=== PATIENT | female | born 1995 | race Two or more races ===

== ENCOUNTER 2019-06-17 09:36 | Emergency (ER) | payer SELFPAY ==
[~2019-06-17] VITALS: Ht 162.6 cm; Wt 59.0 kg
[2019-06-17 10:53] LABS: BASO % 0 % (0-3); EOS # 0.1 x10^3/uL (0.0-0.7); EOS % 1 % (0-3); HEMATOCRIT 38.7 % (36.0-47.0); HEMOGLOBIN 13.3 g/dL (12.0-15.5); LYMPH # 3.3 x10^3/uL (1.0-4.8); LYMPH % 29 % (24-48); MEAN CORPUSCULAR HEMOGLOBIN 30 pg (25-35); MEAN CORPUSCULAR HGB CONC 34 g/dL (31-37); MEAN CORPUSCULAR VOLUME 87 fL (79-100); MONO # 0.6 x10^3/uL (0.0-1.1); MONO % 6 % (0-9); NEUT # 7.4 x10^3/uL (1.8-7.7); NEUT % 65 % (31-73); PLATELET COUNT 401 x10^3/uL (140-400); RED BLOOD COUNT 4.43 x10^6/uL (3.50-5.40); RED CELL DISTRIBUTION WIDTH 13.1 % (11.5-14.5); WHITE BLOOD COUNT 11.4 x10^3/uL (4.0-11.0)
[2019-06-17 10:55] LABS: BILIRUBIN,URINE NEGATIVE (NEG); CLARITY,URINE CLOUDY; COLOR,URINE YELLOW; NITRITE,URINE NEGATIVE (NEG); PH,URINE 7.5; PROTEIN,URINE NEGATIVE (NEG-TRACE); UROBILINOGEN,URINE 0.2 mg/dL (0.2 mg/dL)
[2019-06-17 11:05] LABS: CALCIUM 8.8 mg/dL (8.5-10.1); CREATININE 0.5 mg/dL (0.6-1.0); GFR 150.3; POTASSIUM 3.8 mmol/L (3.5-5.1)
[2019-06-17 11:06] LABS: AMORPHOUS SEDIMENT,UR PRESENT /HPF; SQUAMOUS EPITHELIAL CELL,UR MANY /LPF
[2019-06-17 11:07] LABS: BACTERIA,URINE MODERATE /HPF (0-FEW)
[2019-06-17 11:08] LABS: RBC,URINE OCC /HPF (0-2)
[2019-06-17 11:09] LABS: ALBUMIN 3.5 g/dL (3.4-5.0); ALBUMIN/GLOBULIN RATIO 0.9 (1.0-1.7); TOTAL BILIRUBIN 0.4 mg/dL (0.2-1.0); TOTAL PROTEIN 7.4 g/dL (6.4-8.2)
[2019-06-17] MEDS ORDERED: ONDANSETRON PF 4 MG/2 ML VIAL. IV ONE (11:30)
[2019-06-17] MEDS ORDERED: IV NORMAL SALINE 1000ML BAG 1,000 ML IV ONE (11:30)
[2019-06-17 12:00] VITALS: BP 105/54
--- NOTE | 2019-06-17 12:12 | RAD ---
Ultrasound first semester HISTORY: Right lower quadrant pain Sonographic examination appearance was performed by transabdominal technique multiple static images were obtained. The maternal cervix appears normal measures 4.1 cm in length. There is a posterior placenta with marginal previa with the edge of the placenta measuring 6 mm from the internal cervical os. There is a single live intrauterine the heartbeat is confirmed at 145 beats for minute. There is a posterior placenta. The ovaries appear normal with normal blood flow. There is no abnormality seen in the adnexa or the right lower quadrant. Visualization of structures is limited by the early gestational age. This may size by ultrasound is 13 weeks 6 days estimated date of confinement December 17, 2019 The measurements as follows: BPD 2.4 cm 14 weeks 1 day Head circumference 9.0 cm 40 weeks 0 days Discovered 7.8 cm 40 weeks 1 day Femur length 1.0 cm 30 weeks 1 day The amniotic fluid volume appears normal. IMPRESSION: 1. Single live intrauterine at 13 weeks cc gestational age. 2. Marginal previa. 3. A short-term follow-up ultrasound should be performed if clinically indicated otherwise a structural survey would be performed at 18-21 weeks gestational age. End impression Electronically signed by: Quoc Rojas III, MD (06/17/2019 12:09 PM) [facility]
--- NOTE | 2019-06-17 12:30 | PHYS DOC ---
Past Medical History Past Medical History: No Pertinent History Past Surgical History: No Surgical History Alcohol Use: None Drug Use: None Adult General Chief Complaint Chief Complaint: ABDOMINAL PAIN IN HPI HPI Patient is a 23 year old female who presents to the emergency department accompanied by her significant other with complaints of right sided pelvic pain, nausea, and tactile fever. Patient denies any vaginal bleeding, irregular vaginal discharge, vomiting, diarrhea, dysuria, hematuria, or increased urinary frequency. She reports concern because she was told she had an ovarian cyst and she has had pain throughout her . Patient states that the pain increased this week. Her estimated due date is 12/17/19. She is unsure of when her LMP was. PT currently rates her pain 8/10 on the pain scale and denies any alleviating factors. Pt is 2, para 1. Review of Systems Review of Systems Constitutional: Denies fever or chills [] Eyes: Denies redness, or eye pain [] HENT: Denies nasal congestion or sore throat [] Respiratory: Denies cough or shortness of breath [] Cardiovascular: No additional information not addressed in HPI [] GI: see HPI : Denies dysuria or hematuria; reports increased frequency see HPI [] Musculoskeletal: Denies back pain or joint pain [] Integument: Denies rash or skin lesions [] Neurologic: Denies headache, focal weakness or sensory changes [] All other systems were reviewed and found to be within normal limits, except as documented in this note. Current Medications Current Medications Current Medications Medications (Trade) Dose Ordered Sig/Lou Start Time Stop Time Status Last Admin Dose Admin Ondansetron HCl (Zofran) 4 mg 1X ONCE 06/17/19 11:30 06/17/19 11:31 DC 06/17/19 11:25 4 MG Sodium Chloride 1,000 ml @ 1,000 mls/hr 1X ONCE 06/17/19 11:30 06/17/19 12:29 DC 06/17/19 11:25 1,000 MLS/HR Allergies Allergies Allergies Coded Allergies Type Severity Reaction Last Updated Verified Penicillins Allergy Severe HIVES 06/17/19 Yes Physical Exam Physical Exam Constitutional: Well developed, well nourished, no acute distress, non-toxic appearance. [] HENT: Normocephalic, atraumatic, bilateral external ears normal, oropharynx moist, no oral exudates, nose normal. [] Eyes: PERRLA, EOMI, conjunctiva normal, no discharge. [] Neck: Normal range of motion, no tenderness, supple, no stridor. [] Cardiovascular:Heart rate regular rhythm, no murmur [] Lungs & Thorax: Bilateral breath sounds clear to auscultation [] Abdomen: Bowel sounds normal, soft, RLQ TTP, no guarding, no rebound tenderness, no masses, no pulsatile masses. [] Skin: Warm, dry, no erythema, no rash. [] Back: No CVA tenderness. [] Extremities: No tenderness, no cyanosis, no clubbing, ROM intact, no edema. [] Neurologic: Alert and oriented X 3, no focal deficits noted. [] Psychologic: Affect normal, judgement normal, mood normal. [] Current Patient Data Vital Signs Vital Signs Date Time Temp Pulse Resp B/P (MAP) Pulse Ox O2 Delivery O2 Flow Rate FiO2 06/17/19 12:00 61 16 105/54 (71) 100 Room Air 06/17/19 10:00 98.4 98.4 Lab Values Laboratory Tests Test 06/17/19 10:16 06/17/19 10:30 POC Urine HCG, Qualitative Hcg positive (Negative) White Blood Count 11.4 x10^3/uL (4.0-11.0) H Red Blood Count 4.43 x10^6/uL (3.50-5.40) Hemoglobin 13.3 g/dL (12.0-15.5) Hematocrit 38.7 % (36.0-47.0) Mean Corpuscular Volume 87 fL (79-100) Mean Corpuscular Hemoglobin 30 pg (25-35) Mean Corpuscular Hemoglobin Concent 34 g/dL (31-37) Red Cell Distribution Width 13.1 % (11.5-14.5) Platelet Count 401 x10^3/uL (140-400) H Neutrophils (%) (Auto) 65 % (31-73) Lymphocytes (%) (Auto) 29 % (24-48) Monocytes (%) (Auto) 6 % (0-9) Eosinophils (%) (Auto) 1 % (0-3) Basophils (%) (Auto) 0 % (0-3) Neutrophils # (Auto) 7.4 x10^3/uL (1.8-7.7) Lymphocytes # (Auto) 3.3 x10^3/uL (1.0-4.8) Monocytes # (Auto) 0.6 x10^3/uL (0.0-1.1) Eosinophils # (Auto) 0.1 x10^3/uL (0.0-0.7) Basophils # (Auto) 0.0 x10^3/uL (0.0-0.2) Urine Collection Type Void Urine Color Yellow Urine Clarity Cloudy Urine pH 7.5 Urine Specific [place] 1.020 Urine Protein Negative mg/dL (NEG-TRACE) Urine Glucose (UA) Negative mg/dL (NEG) Urine Ketones (Stick) Negative mg/dL (NEG) Urine Blood Negative (NEG) Urine Nitrite Negative (NEG) Urine Bilirubin Negative (NEG) Urine Urobilinogen Dipstick 0.2 mg/dL (0.2 mg/dL) Urine Leukocyte Esterase Small (NEG) Urine RBC Occ /HPF (0-2) Urine WBC 5-10 /HPF (0-4) Urine Squamous Epithelial Cells Many /LPF Urine Amorphous Sediment Present /HPF Urine Bacteria Moderate /HPF (0-FEW) Urine Mucus Marked /LPF Maternal Serum HCG Beta Subunit 05013 mIU/mL (0-5) H Sodium Level 138 mmol/L (136-145) Potassium Level 3.8 mmol/L (3.5-5.1) Chloride Level 104 mmol/L (98-107) Carbon Dioxide Level 24 mmol/L (21-32) Anion Gap 10 (6-14) Blood Urea Nitrogen 5 mg/dL (7-20) L Creatinine 0.5 mg/dL (0.6-1.0) L Estimated GFR (Cockcroft-Gault) 150.3 BUN/Creatinine Ratio 10 (6-20) Glucose Level 74 mg/dL (70-99) Calcium Level 8.8 mg/dL (8.5-10.1) Total Bilirubin 0.4 mg/dL (0.2-1.0) Aspartate Amino Transferase (AST) 13 U/L (15-37) L Alanine Aminotransferase (ALT) 11 U/L (14-59) L Alkaline Phosphatase 79 U/L (46-116) Total Protein 7.4 g/dL (6.4-8.2) Albumin 3.5 g/dL (3.4-5.0) Albumin/Globulin Ratio 0.9 (1.0-1.7) L Laboratory Tests 06/17/19 10:30 Laboratory Tests 06/17/19 10:30 Microbiology 06/17/19 Urine Culture - Final, Complete 06/17/19 Urine Culture Result 1 (DAVE) - Final, Complete EKG EKG [] Radiology/Procedures Radiology/Procedures PROCEDURE: PREG 1ST TRIMESTER Ultrasound first semester HISTORY: Right lower quadrant pain Sonographic examination appearance was performed by transabdominal technique multiple static images were obtained. The maternal cervix appears normal measures 4.1 cm in length. There is a posterior placenta with marginal previa with the edge of the placenta measuring 6 mm from the internal cervical os. There is a single live intrauterine the heartbeat is confirmed at 145 beats for minute. There is a posterior placenta. The ovaries appear normal with normal blood flow. There is no abnormality seen in the adnexa or the right lower quadrant. Visualization of structures is limited by the early gestational age. This may size by ultrasound is 13 weeks 6 days estimated date of confinement December 17, 2019 The measurements as follows: BPD 2.4 cm 14 weeks 1 day Head circumference 9.0 cm 40 weeks 0 days Discovered 7.8 cm 40 weeks 1 day Femur length 1.0 cm 30 weeks 1 day The amniotic fluid volume appears normal. IMPRESSION: 1. Single live intrauterine at 13 weeks cc gestational age. 2. Marginal previa. 3. A short-term follow-up ultrasound should be performed if clinically indicated otherwise a structural survey would be performed at 18-21 weeks gestational age. [] Course & Med Decision Making Course & Med Decision Making Pertinent Labs and Imaging studies reviewed. (See chart for details) dx: uti in , RLQ abd pain CBC: WBC 11.4 plt 401; CMP unremarkable, UA concerning for UTI, BHcg 44475 US negative for appendicitis, or ovarian cyst Prescription written for keflex, Pt instructed to avoid bladder irritants, iIncrease clear fluids. Follow up with her [employer], Dr. Wiley in 1-2 days, pelvic rest until follow up. Return to the ER if pain increases, you develop a fever, or are unable to tolerate fluids or food. PT verbalized an understanding of home care, medications, follow-up, and return to ED instructions and was in agreement with the plan of care. [] Dragon Disclaimer Dragon Disclaimer This electronic medical record was generated, in whole or in part, using a voice recognition dictation system. Departure Departure Impression: Primary Impression: Right lower quadrant abdominal pain affecting in first trimester Additional Impression: UTI (urinary tract infection) during Disposition: 01 HOME, SELF-CARE Condition: STABLE Referrals: NO PCP (PCP) Patient Instructions: Abdominal Pain During , [id number], - Urinary Tract Infection Additional Instructions: Fill prescription(s) and use as directed. Avoid bladder irritants such as caffeine, carbonation, and spicy foods. Increase clear fluids. Follow up with y our [employer] Dr. Wiley in 1-2 days. Return to the ER if pain increases, you develop a fever, or are unable to tolerate fluids or food. Scripts Cephalexin (KEFLEX) 500 Mg Capsule 1 CAP PO BID for 7 Days, #14 CAP 0 Refills Prov: ENDER SOLORZANO APRN 06/17/19 Problem Qualifiers Additional Impression: UTI (urinary tract infection) during Trimester: second trimester Qualified Codes: O23.42 - Unspecified infection of urinary tract in , second trimester ENDER SOLORZANO [employer] Jun 17, 2019 12:30
[2019-06-17] MEDS ORDERED: CEPH-264 PO (12:57)
== END 2019-06-17 13:10 | disposition home or self-care (01) ==
LOC: ER 09:36
DX: O23.41 Unspecified infection of urinary tract in pregnancy, first trimester (principal); Z88.0 Allergy status to penicillin; Z3A.13 13 weeks gestation of pregnancy
CPT/HCPCS: 36415; 76801; 80053; 81001; 81025; 84702; 85025; 87086; 96374; 99285; J2405; J7030

== ENCOUNTER 2019-11-06 10:46 | Observation (INO) | payer SELFPAY ==
[~2019-11-06 10:46] MED LIST: CEPH-264 PO
[2019-11-06] MEDS ORDERED: IV RINGERS,LACTATED 1000ML 1,000 ML IV SCH (11:04)
[2019-11-06 11:36] LABS: BILIRUBIN,URINE NEGATIVE (NEG); CLARITY,URINE CLEAR; COLOR,URINE YELLOW; NITRITE,URINE NEGATIVE (NEG); PROTEIN,URINE NEGATIVE (NEG-TRACE); UROBILINOGEN,URINE 0.2 mg/dL (0.2 mg/dL)
[2019-11-06 11:52] LABS: BACTERIA,URINE MODERATE /HPF (0-FEW); RBC,URINE OCC /HPF (0-2); SQUAMOUS EPITHELIAL CELL,UR FEW /LPF
== END 2019-11-06 13:05 | disposition home or self-care (01) ==
LOC: 3 SO LND 10:46
PROVIDERS: ADMIT Obstetrics & Gynecology; ATTEND Obstetrics & Gynecology
DX: O99.513 Diseases of the respiratory system complicating pregnancy, third trimester (principal); R05 Cough; J00 Acute nasopharyngitis [common cold]; Z3A.38 38 weeks gestation of pregnancy
CPT/HCPCS: 81001; 87086; G0378; G0379

== ENCOUNTER 2020-10-30 19:17 | Emergency (ER) | payer MEDICAID ==
[~2020-10-30] VITALS: Ht 154.9 cm; Wt 69.1 kg
[~2020-10-30 19:17] MED LIST changes: +IBUP-1027 PO
[2020-10-30 20:40] VITALS: BP 133/79
[2020-10-30] MEDS ORDERED: SILV20CR14 TP (21:22)
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
[2020-10-30] MEDS ORDERED: POLY10DR3 EACHEYE (21:29)
== END 2020-10-30 22:05 | disposition home or self-care (01) ==
LOC: ER 19:17
DX: T20.16XA Burn of first degree of forehead and cheek, initial encounter (principal); T23.102A Burn of first degree of left hand, unspecified site, initial encounter; T23.101A Burn of first degree of right hand, unspecified site, initial encounter; H57.13 Ocular pain, bilateral; Z88.0 Allergy status to penicillin; X12.XXXA Contact with other hot fluids, initial encounter; Y93.89 Activity, other specified; Y92.89 Other specified places as the place of occurrence of the external cause; Y99.8 Other external cause status
CPT/HCPCS: 99283